=== PATIENT | male | born 1955 | race Two or more races ===

== ENCOUNTER 2018-02-14 12:27 | Emergency (ER) | payer OTHER ==
[~2018-02-14] VITALS: Ht 180.3 cm; Wt 88.5 kg
[2018-02-14 14:41] VITALS: BP 157/77
== END 2018-02-14 15:28 | disposition home or self-care (01) ==
LOC: ER 12:29
DX: N43.3 Hydrocele, unspecified (principal); K40.90 Unilateral inguinal hernia, without obstruction or gangrene, not specified as recurrent
CPT/HCPCS: 76870